=== PATIENT | female | born 1975 | race Caucasian/White ===

== ENCOUNTER 2018-04-08 11:19 | Emergency (ER) | payer SELFPAY ==
[~2018-04-08] VITALS: Ht 167.6 cm; Wt 83.9 kg
[2018-04-08] MEDS ORDERED: PREDNISONE10 MG PO (11:35)
== END 2018-04-08 11:34 | disposition home or self-care (01) ==
LOC: ED 11:19
DX: L23.7 Allergic contact dermatitis due to plants, except food (principal); Z90.49 Acquired absence of other specified parts of digestive tract; Z88.2 Allergy status to sulfonamides; Z88.1 Allergy status to other antibiotic agents